=== PATIENT | female | born 1985 | race Hispanic/Latino ===

== ENCOUNTER 2018-04-05 08:28 | Emergency (ER) | payer SELFPAY ==
[2018-04-05 09:24] LABS: #Basophils 0.1 thou/uL (0.0-0.2); #Eosinphils 0.1 thou/uL (0.0-0.7); #Lymphocytes 1.8 thou/uL (1.20-3.40); #Monocytes 0.4 thou/uL (0.11-0.59); #Neutrophils 2.4 thou/uL (1.40-6.50); %Basophils 1.4 % (0.0-1.0); %Lymphocytes 37.8 % (21.0-51.0); %Monocytes 7.5 % (0.0-10.0); %Neutrophils 51.4 % (42.0-75.0); Hemoglobin 13.7 g/dL (12.0-16.0); Mean Corpuscular HGB CONC 34.4 g/dL (32.0-36.0); Mean Corpuscular Hemoglobin 30.5 pg (27.0-31.0); Mean Corpuscular Volume 88.5 fL (78.0-98.0); Mean Platelet Volume 8.2 fL (7.4-10.4); Platelet Count 184 thou/uL (130-400); RBC Distribution Width 11.8 % (11.5-14.5); Red Blood Cell (RBC) Count 4.49 mill/uL (4.20-5.40); White Blood Cell (WBC) Count 4.8 thou/uL (4.8-10.8)
[2018-04-05 09:25] LABS: BHCG - Serum POSITIVE (NEGATIVE); Pregs Control Background? CLEAR/WHITE (CLR/WHITE); Pregs Control Bar Appear? YES (CONTROL BAR)
[2018-04-05 09:29] LABS: Bilirubin Negative (Negative); Blood, Urine Moderate (Negative); Clarity CLEAR (Clear); Glucose, Urine (Dipstick) Negative (Negative); Leukocyte Negative (Negative); Nitrite Negative (Negative); Protein, Urine (Dipstick) Negative (Neg-Trace); Specific Gravity, Urine 1.017 (1.002-1.036); Urobilinogen 0.2 mg/dL (0.2-1.0); pH, Urine 5.5 (5.0-9.0)
[2018-04-05 09:32] LABS: Bacteria/HPF None Seen HPF (None Seen); Hyaline Casts/LPF 0-3 HYALINE CAST LPF (0-3 Hyaline); Pathc Cast-AUWi Flag 0.43 (0-2.49); Squamous Epithelial 0-3 HPF (0-3); WBC/HPF 0-3 HPF (0-3)
--- NOTE | 2018-04-05 10:27 | ULT ---
PELVIC SONOGRAM TRANSABDOMINAL AND TRANSVAGINAL IMAGING WITH DUPLEX EVALUATION: History: Pelvic pain, bleeding, irregular periods. FINDINGS: Urinary bladder is decompressed. The uterus has a heterogeneous echotexture and is 7.0 cm. Endometriu m is 0.5 cm without gestational sac. Moderate amount of free fluid throughout the pelvis. Right ovary is 4.5 cm with a normal appearance w ith good color and spectral doppler flow. Left ovary is 3.6 cm. Adjacent to the left ovary is a complex cystic mass with peripheral vascular fl ow. The lesion measures up to 2.7 cm. Pelvic fluid is greatest around the left adnexa. IMPRESSION: 1. Complex cystic mass left adnexa with increased vascular flow and adjacent free fluid. In the setti ng of positive test and absence of intrauterine gestation, ectopic is of primary concern. Close clinical correlation with quantitative Beta HCG and continued clinical and sonographic follow up is required. Findings were called to Dr. Baeza in the Emergency Department at 0935 hours. Code CR POS: [id number]
[2018-04-05 10:55] LABS: ALT (SGPT) 19 U/L (8-55); AST (SGOT) 17 U/L (5-34); Albumin 4.8 g/dL (3.5-5.0); Alkaline Phosphatase 49 U/L (40-150); Anion Gap 13 mmol/L (10-20); BUN (Urea Nitrogen) 9 mg/dL (7.0-18.7); Bilirubin, Total 0.8 mg/dL (0.2-1.2); Calc. Creatinine Clearance 0 mL/min (70-130); Calcium 9.5 mg/dL (7.8-10.44); Carbon Dioxide 24 mmol/L (22-29); Chloride 105 mmol/L (98-107); Estimated GFR-MDRD Greater than 90; Globulin 2.9 g/dL (2.4-3.5); Glucose 107 mg/dL (70-105); Potassium 3.8 mmol/L (3.5-5.1); Protein, Total 7.7 g/dL (6.0-8.3); Sodium 138 mmol/L (136-145)
--- NOTE | 2018-04-05 11:55 | CON ---
DATE OF CONSULTATION: 04/05/2018 TIME OF EVALUATION: 10:30 to 10:45 LOCATION: ER BED: 9 REASON FOR CONSULT: By MARKETING ASSISTANT MANAGER is beta HCG of 391 and history of vaginal bleeding. HISTORY OF PRESENT ILLNESS: In brief, this is a 32-year-old G2, P1 with a vaginal delivery in 2015 a nd no PID history or risk factors. She has no history of prior STIs, who presents to the ER with vag inal bleeding history, now only spotting. She states that 3 weeks ago when she was in [place], daniel he[place] was having some vaginal bleeding and passed a clot or possibly tissue. She did not seek medical ev aluation at that time. She had her last child with the [facility]. PAST MEDICAL HISTORY: Negative. ALLERGIES: None. PAST SURGICAL HISTORY: Negative. OBSTETRIC HISTORY: Significant for vaginal delivery in 2014. Ultrasound in the ER by Radiology Depa rtment revealed a normal uterus with an endometrial stripe of only 5 mm, normal bilateral ovaries, b ut possible polycystic ovarian morphology. There is a left adjacent to the ovary ill-defined structu re which is unclear if it is bowel gas or part of the ovarian stroma according to the verbal report a nd verbal discussion that I had with the with the radiologist. There is some free fluid in the poste rior cul-de-sac. LABORATORY DATA: Revealed a hematocrit value of 39.8, patient's blood type is Rh positive. PHYSICAL EXAMINATION: VITAL SIGNS: Pulse is 66, blood pressure is 110/60, and respirations are 16. GENERAL: She is resting comfortably in the stretcher in no acute distress. ABDOMEN: Shows no pain on deep palpation. No rebound and no guarding. Abdomen is soft and nontende r. There is no active vaginal bleeding at this time. ASSESSMENT: This is a patient with a beta hCG value of 391, below the limit of detection for an intr auterine , with an ill-defined left periovarian mass versus lesion. Based on the patient's history of vaginal bleeding about 3 weeks ago and the fact that she is so clinically stable, I am sli ghtly reluctant to give methotrexate at this time. It is important to note that I discussed with the patient the possibility of a tubal ectopic versus miscarriage in process versus early preg chuck. The patient understood these possibilities. The patient's was also at bedside and I discussed with him the same issues. PLAN: 1. I discussed this with the Emergency Room staff as well. As she is still clinically stable, marizol moe I had discussed bringing the patient in for 23-hour observation, but after my exam find no acute findings. I feel this is not cost or time affective as my index of suspicion is low. 2. I recommend following her up at [facility] in 24 hours for a repeat beta HCG level. 3. I discussed with her that if this is an ectopic , this may declare itself in the next fe w days at which time she may need therapy at that time, which may include either methotrexate or surg kieran. The patient is aware of both of these possibilities. 4. Spontaneous loss is more common in ectopic , and this patient has no risk fact ors for ectopic, especially since she is clinically stable, I have elected to follow her up in 24 stephania rs. 5. I have recommended that she call [facility] to recheck her hemoglobin and hematocrit and beta H CG tomorrow. Limitations of ultrasound were discussed with the patient. I cannot guarantee that this is not an ea rly ectopic nor can I guarantee that this is a miscarriage in process. As the level of det ection is so small, it is okay for expectant management. This patient has some free fluid on ultraso und, but her physical exam does not support hemoperitoneum. This may be reactive fluid from early pr egnancy. I do not suspect that she is bleeding into the abdomen, especially as her pulse is in the 6 0s and her abdominal exam lacks peritoneal signs. 6. A working diagnosis is early of unknown location, suspect miscarriage. 7. Repeat labs as an outpatient in 24 hours.
== END 2018-04-05 11:36 | disposition home or self-care (01) ==
LOC: ERS 08:28
DX: O02.1 Missed abortion (principal)
CPT/HCPCS: 36415; 76856; 80053; 81003; 81015; 84702; 84703; 85025; 86900; 86901

== ENCOUNTER 2023-04-21 12:22 | Inpatient (IN) | payer SELFPAY ==
[~2023-04-21 12:22] MED LIST: Iopamidol-370 76% 500 ML MDV (1 ML CHARGE) ONE
[2023-04-21] MEDS ORDERED: Piperacillin/Tazobactam 4.5 GM VIAL ONE (12:38)
[2023-04-21 12:57] LABS: #Monocytes 1.3 thou/uL (0.11-0.59); #Neutrophils 13.7 thou/uL (1.40-6.50); %Basophils 0.3 % (0.0-1.0); %Lymphocytes 3.3 % (21.0-51.0); %Monocytes 8.5 % (0.0-10.0); %Neutrophils 87.6 % (42.0-75.0); Hemoglobin 13.1 g/dL (12.0-16.0); Mean Corpuscular HGB CONC 33.6 g/dL (32.0-36.0); Mean Corpuscular Hemoglobin 29.4 pg (27.0-31.0); Mean Corpuscular Volume 87.6 fl (78.0-98.0); Mean Platelet Volume 10.8 fL (7.4-10.4); Platelet Count 180 10x3/uL (130-400); RBC Distribution Width 12.1 % (11.5-14.5); Red Blood Cell (RBC) Count 4.45 mill/uL (4.20-5.40); White Blood Cell (WBC) Count 15.6 10x3/uL (4.8-10.8)
[2023-04-21 13:14] LABS: BHCG - Serum Negative (NEGATIVE); Pregs Control Background? CLEAR/WHITE (CLR/WHITE); Pregs Control Bar Appear? YES (CONTROL BAR)
[2023-04-21 13:21] LABS: ALT (SGPT) 22 U/L (8-55); AST (SGOT) 24 U/L (5-34); Albumin 4.4 g/dL (3.5-5.0); Alkaline Phosphatase 53 U/L (40-110); Anion Gap 11 mmol/L (10-20); BUN (Urea Nitrogen) 9 mg/dL (7.0-18.7); Bilirubin, Total 0.7 mg/dL (0.2-1.2); Calc. Creatinine Clearance 0 mL/min (70-130); Calcium 9.3 mg/dL (7.8-10.44); Carbon Dioxide 23 mmol/L (22-29); Chloride 106 mmol/L (98-107); Estimated GFR 109; Globulin 3.3 g/dL (2.4-3.5); Glucose 140 mg/dL (70-105); Lipase 16 U/L (8-78); Potassium 3.7 mmol/L (3.5-5.1); Protein, Total 7.7 g/dL (6.0-8.3); Sodium 136 mmol/L (136-145)
[2023-04-21] MEDS ORDERED: Ketorolac Tromethamine 30 MG/ML VIAL ONE (14:12)
[2023-04-21 15:07] LABS: Bacteria/HPF 1+ HPF (None Seen); Bilirubin Negative (Negative); Blood, Urine 1+ (Negative); CAUTI Indications for Culture Pelvic or flank pain; Clarity Clear (Clear); Glucose, Urine (Dipstick) Normal (Negative); Ketone, Urine 60 mg/dL (Negative); Leukocyte 75 Leu/uL (Negative); Nitrite 1+ (Negative); Protein, Urine (Dipstick) Negative (Neg-Trace); RBC/HPF 0-3 HPF (0-3); Squamous Epithelial 0-3 HPF (0-3); Urobilinogen Normal mg/dL (Less than 2); pH, Urine 6.5 (5.0-9.0)
[2023-04-21 15:08] LABS: Urine Culture Reflex Yes Yes
[2023-04-21] MEDS ORDERED: Morphine 4 MG/ML VIAL ONE (15:59)
[2023-04-21] MEDS ORDERED: Ondansetron PF 4 MG/2 ML Vial ONE (16:01)
[2023-04-21] MEDS ORDERED: Acetaminophen 500 MG TAB ONE (16:01)
[2023-04-21] MEDS ORDERED: HumaLOG 300 UNITS/3 ML VIAL SC PRN ×2 (16:30)
[2023-04-21] MEDS ORDERED: Dextrose 50% Abboject 50 ML SYRINGE SLOW IVP PRN (16:30)
[2023-04-21] MEDS ORDERED: Dextrose 5% in Water 1,000 ML IV PRN (16:30)
[2023-04-21] MEDS ORDERED: Zolpidem Tartrate 5 MG TAB PO PRN (16:30)
[2023-04-21] MEDS ORDERED: Ondansetron ODT 4 MG TAB PO PRN (16:30)
[2023-04-21] MEDS ORDERED: Ondansetron PF 4 MG/2 ML Vial IVP PRN (16:30)
[2023-04-21] MEDS ORDERED: Acetaminophen 325 MG TAB PO PRN (16:30)
[2023-04-21] MEDS ORDERED: Glucagon 1 MG/ML KIT IM PRN (16:30)
[2023-04-21] MEDS ORDERED: Gentamicin Sulfate 100 MG in Premix Bag 1 BAG IVPB SCH (16:45)
[2023-04-21] MEDS: Lactated Ringer's 1,000 ML IV SCH (17:11)
[2023-04-21 17:32] VITALS: BMI 23.4
[2023-04-21] MEDS ORDERED: Piperacillin/Tazobactam 3.375 GM in Sodium Chloride 0.9% 100 ML IVPB SCH (18:00)
[2023-04-21] MEDS: Piperacillin/Tazobactam 3.375 GM in Sodium Chloride 0.9% 100 ML IVPB SCH (20:59)
[2023-04-21] MEDS: HYDROcodone/Acetaminophen 5/325 mg Tablet PO PRN (21:03)
[2023-04-22] MEDS: Lactated Ringer's 1,000 ML IV SCH ×3 (01:02→16:09)
[2023-04-22] MEDS: Piperacillin/Tazobactam 3.375 GM in Sodium Chloride 0.9% 100 ML IVPB SCH ×3 (05:11→21:59)
[2023-04-22] MEDS: HYDROcodone/Acetaminophen 5/325 mg Tablet PO PRN ×3 (05:18→21:58)
[2023-04-22 06:46] LABS: #Basophils 0.1 thou/uL (0.0-0.2); #Monocytes 1.5 thou/uL (0.11-0.59); #Neutrophils 12.4 thou/uL (1.40-6.50); %Basophils 0.3 % (0.0-1.0); %Eosinophils 0.2 % (0.0-10.0); %Lymphocytes 9.7 % (21.0-51.0); %Monocytes 9.9 % (0.0-10.0); %Neutrophils 79.5 % (42.0-75.0); Mean Corpuscular HGB CONC 33.1 g/dL (32.0-36.0); Mean Corpuscular Hemoglobin 30.1 pg (27.0-31.0); Platelet Count 157 10x3/uL (130-400); RBC Distribution Width 12.6 % (11.5-14.5); Red Blood Cell (RBC) Count 3.35 mill/uL (4.20-5.40); White Blood Cell (WBC) Count 15.6 10x3/uL (4.8-10.8)
[2023-04-22 06:53] LABS: Hematocrit 30.5 % (36.0-47.0); Hemoglobin 10.1 g/dL (12.0-16.0)
[2023-04-22 07:13] LABS: Anion Gap 10 mmol/L (10-20); BUN (Urea Nitrogen) 6 mg/dL (7.0-18.7); Calc. Creatinine Clearance 112 mL/min (70-130); Calcium 8.4 mg/dL (7.8-10.44); Carbon Dioxide 19 mmol/L (22-29); Chloride 109 mmol/L (98-107); Estimated GFR 118; Glucose 124 mg/dL (70-105); Potassium 3.7 mmol/L (3.5-5.1); Sodium 134 mmol/L (136-145)
[2023-04-23] MEDS: Lactated Ringer's 1,000 ML IV SCH ×3 (02:06→09:36)
[2023-04-23] MEDS: Piperacillin/Tazobactam 3.375 GM in Sodium Chloride 0.9% 100 ML IVPB SCH ×3 (05:03→21:42)
[2023-04-23 08:03] LABS: #Monocytes 0.9 thou/uL (0.11-0.59); %Basophils 0.5 % (0.0-1.0); %Eosinophils 0.4 % (0.0-10.0); %Lymphocytes 13.6 % (21.0-51.0); %Neutrophils 74.1 % (42.0-75.0); Hematocrit 32.4 % (36.0-47.0); Hemoglobin 10.7 g/dL (12.0-16.0); Mean Corpuscular Hemoglobin 29.6 pg (27.0-31.0); Mean Corpuscular Volume 89.8 fl (78.0-98.0); Mean Platelet Volume 10.6 fL (7.4-10.4); Platelet Count 161 10x3/uL (130-400); RBC Distribution Width 12.3 % (11.5-14.5); Red Blood Cell (RBC) Count 3.61 mill/uL (4.20-5.40); White Blood Cell (WBC) Count 8.1 10x3/uL (4.8-10.8)
[2023-04-23 08:21] LABS: Anion Gap 14 mmol/L (10-20); BUN (Urea Nitrogen) 5 mg/dL (7.0-18.7); Calc. Creatinine Clearance 99 mL/min (70-130); Calcium 9.1 mg/dL (7.8-10.44); Carbon Dioxide 21 mmol/L (22-29); Chloride 105 mmol/L (98-107); Estimated GFR 115; Glucose 107 mg/dL (70-105); Potassium 3.9 mmol/L (3.5-5.1); Sodium 136 mmol/L (136-145)
[2023-04-23] MEDS: HYDROcodone/Acetaminophen 5/325 mg Tablet PO PRN ×2 (08:27→19:00)
[2023-04-24] MEDS: Lactated Ringer's 1,000 ML IV SCH ×2 (05:01→12:16)
[2023-04-24] MEDS: Piperacillin/Tazobactam 3.375 GM in Sodium Chloride 0.9% 100 ML IVPB SCH (05:01)
[2023-04-24] MEDS: HYDROcodone/Acetaminophen 5/325 mg Tablet PO PRN (11:38)
[2023-04-24 12:21] VITALS: BP 115/78; TEMP 98.2
== END 2023-04-24 12:33 | disposition home or self-care (01) | DRG 872 ==
LOC: ERS 12:22 → T4-A 15:40
PROVIDERS: ADMIT Internal Medicine; ATTEND Family Medicine
DX: A41.51 Sepsis due to Escherichia coli [E. coli] (principal); N10 Acute pyelonephritis; E87.1 Hypo-osmolality and hyponatremia; R73.03 Prediabetes; Z79.899 Other long term (current) drug therapy
CPT/HCPCS: 36415; 36416; 74177; 76705; 80048; 80053; 81001; 83605; 83690; 84703; 85025; 87040; 87077; 87086; 87149; 87186; 93005; 96365; 96375; J1580; J1885; J2270; J2405; J2543; J3490; J7120; Q9967